=== PATIENT | male | born 1975 | race Caucasian/White ===

== ENCOUNTER 2021-05-25 14:34 | Outpatient (REF) | payer MEDICAID, SELFPAY ==
[2021-05-25 18:49] LABS: HCT 44.7 % (40.0-50.0); HGB 14.7 g/dL (13.5-17.5); MCH 30.9 pg (27.0-33.0); MCHC 32.9 % (32.0-36.0); MCV 93.9 fL (80-95); MPV 10.2 fL (8.0-11.0); Platelet Count 301 10^3/uL (130-400); RBC 4.76 10^6/uL (4.36-5.78); RDW 12.4 % (11.8-14.1); RDW-SD 43.1 fL; WBC 9.56 10^3/uL (4.4-10.8)
[2021-05-25 19:24] LABS: ALT 28 U/L (16-63); AST 16 U/L (15-37); Albumin 4.1 g/dL (3.4-5.0); Alkaline Phosphatase 106 U/L (46-116); Anion Gap 10.7 mmol/L (3-11); BUN 11 mg/dL (7-18); Bilirubin, Total 0.4 mg/dL (0.2-1.0); CO2 24.3 mmol/L (21.0-32.0); Calcium 8.9 mg/dL (8.5-10.1); Chloride 105 mmol/L (98-107); Glucose 93 mg/dL (74-106); Potassium 4.3 mmol/L (3.5-5.1); Sodium 140 mmol/L (136-145)
[2021-05-25 19:56] LABS: PROTEIN 17.8 mg/dL
[2021-05-25 20:00] LABS: COMMENT (LAB VIEW ONLY) 147.18 mg/dL; Microalb ug/mg Crea 5.6 ug/mg Cr
[2021-05-25 20:01] LABS: COMMENT (LAB VIEW ONLY) 148.95 mg/dL; Prot/Crea Ur Ratio 0.11
[2021-05-26 17:36] LABS: HBs Antibody, Quant <3.1 mIU/mL (See Note); Hepatitis B Surface Ab Negative (See Note)
[2021-05-26 18:14] LABS: Hepatitis C Ab w Rflx HCV PCR Negative (Negative)
[2021-05-26 18:17] LABS: Hep A Total Ab w Rflx IgM Negative (Negative)
[2021-05-26 19:19] LABS: HIV-1/2 Ag & Ab Screen Negative (Negative)
== END 2021-05-25 14:35 | disposition home or self-care (01) ==
LOC: NCHCN 14:34
PROVIDERS: Visit Provider Nurse Practitioner Family
DX: R60.0 Localized edema (principal); Z00.00 Encounter for general adult medical examination without abnormal findings; Z11.4 Encounter for screening for human immunodeficiency virus [HIV]
CPT/HCPCS: 80053; 85027; 86706; 86709; 86803; 87389; 82043; 82565; 82570; 84156